=== PATIENT | male | born 1930 | race Caucasian/White ===

== ENCOUNTER 2017-08-31 15:52 | Inpatient (IN) | payer OTHER ==
[~2017-08-31] VITALS: Ht 185.4 cm; Wt 120.2 kg
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
[2017-08-31] MEDS ORDERED: NITROGLYCERIN0.4 MG SL (20:15)
[2017-08-31] MEDS ORDERED: SPIRONOLACTONE25 MG PO (20:16)
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
--- NOTE | 2017-08-31 21:15 | NUR ---
OFFERED AND ACCEPTED JELLO AND APPLEJUICE. OFFERED PAIN MEDICATION, BUT STATED HE WANTED TO WAIT. CALLLIGHT WITHIN REACH.
--- NOTE | 2017-08-31 22:30 | NUR ---
MED FOR PAIN, PO PRN PAIN MED, SAYS PAIN 5/10, ENCOURAGED TO DEEP BREATH EVERY TIME THIS NURSE IN ROOM. SAYS HURTS HIS CHEST BUT UNDERSTANDS THAT HE NEEDS TO DO THIS. DRESSING CHANGED TO LEFT HAND. STERI STRIPS STILL ATTACHED TO MOST OF THE SKIN TEAR, BUT THE THUMB SIDE OF HAND HAS MISSING TISSUE AND IS SEEPING BLOOD. NONSTICK DRESSING, COVERED WITH ABD AND WRAPPED WITH KERLIX. LEFT FORARM PURPURA EXTENDS FROM WRIST TO MIDARM. ARM/HAND ELEVATED ON PILLOW. CALL LIGHT WITHIN REACH. SON WENT HOME EARLIER AND TOOK PT WALLET WITH HIM. LEFT PT CELL PHONE.
--- NOTE | 2017-08-31 22:52 | EKG ---
[facility] [address] [facility] [place] [address] Signed Atrial fibrillation with premature ventricular or aberrantly conducted complexes Left axis deviation Right bundle branch block T wave abnormality, consider lateral ischemia Abnormal ECG No previous ECGs available Confirmed by DEYVI KENDRICK MD ([id number]) on 08/31/2017 10:52:44 PM Electronically Signed By: DEYVI KENDRICK MD 08/31/17 2252 PATIENT NAME: KARISHMA SORENSEN Electrocardiogram DATE OF : 34 PHYSICIAN: DEYVI KENDRICK MD REPORT #: [id number] REPORT IS CONFIDENTIAL AND NOT TO BE RELEASED WITHOUT AUTHORIZATION
--- NOTE | 2017-09-01 01:06 | NUR ---
PT WITH EYES CLOSED, RESP EVEN AND UNLABORED.
--- NOTE | 2017-09-01 02:14 | NUR ---
WOKE PT FOR VITAL SIGNS. FIRST THOUGHT HE WAS HOME, BUT THEN ORIENTATED TO SURROUNDINGS. LT HAND WITH BLOOD ON DRESSING. ADDED KERLIX TO COVER, HAND ELEVATED. FINGERS WARM ROSS WELL, HAD PT MOVE FINGERS AROUND. HAD PT MOVE HIS FEET AROUND, AND MOVE TOES. APICAL PULSE D/T IRREGULAR DONE. I/S USED, IMPROVEMENT, ABLE TO INHALE TO 2500, SLOW AND NO INCREASE IN PAIN, COMPARED TO ADMISSION, WHEN HE HAD COMPLAINTS OF DISCOMFORT WHEN TAKING A DEEP BREATH. IV CONTINUES TO INFUSE PER ORDER. PT DENIED NEED FOR PAIN MED, CALL LIGHT WITHIN REACH.
[2017-09-01] MEDS ORDERED: VENTOLIN HFA18 GM (02:58)
[2017-09-01] MEDS ORDERED: ALLOPURINOL300 MG PO ×2 (02:58→02:59)
[2017-09-01] MEDS ORDERED: LISINOPRIL2.5 MG PO (03:00)
[2017-09-01] MEDS ORDERED: COUMADIN4 MG PO (03:01)
--- NOTE | 2017-09-01 04:16 | NUR ---
CHECKED IN ON PT, HE WOKE, REQUESTED TO GET UP TO BATHROOM. WITH MOD ASSIST OF 2, ASSISTED TO STANDING, HE TRIED TO DO MORE THIS TIME, WITH PAIN, COMPLAINS OF PAIN MORE IN THE LEFT SIDE VS CHEST DISCOMFORT. NOT NO NEW BRUISING OR SWELLING OVER THIS SHIFT. LT HAND WITH SCANT NEW REDNESS PEAKING THROUGH THE LAYER OF KERLIX, THUMB SIDE, BUT NO WET BLEEDING NOTED ON HANDS/FINGERS. FINGERS MOVE ON COMMANDE, WARM. VOIDED 225; OFFERED PAIN MED, ACCEPTED ONE TABLET PO MED, WELL DRANK 300 APPLEJUICE. PULSE IRREGULAR, APICAL 60 PULSE, SATS IN THE 90'S ON ROOM AIR. ONCE IN BED, LT HAND ELEVATED ON PILLOW, CALL LIGHT WITHIN REACH. BP 135/65; USED I/S ONCE BACK IN BED, ABLE TO GET TO 2500 WITH MORE EFFORT THAN LAST TIME, NO COUGHING OR COMPLAINTS WHEN HE TAKES A DEEP BREATH. SKIN WARM AND DRY. DRESSINGS ON LEGS WITH NO NEW DRAINAGE FROM BEGINING OF SHIFT.
--- NOTE | 2017-09-01 06:08 | NUR ---
RT IN ROOM GIVING BREATHING TX. ASSESSED PT PAIN NEEDS, STATES THAT THE PILL 'KICKED' IN. DENIES NAUSEA, DIZZINESS OR SOB. LT HAND WITH BLOODY DRAINAGE THROUGH THE KERLIX. TOOK DRESSING DOWN TO THE NONSTICK, NOTED THAT BLOOD GELLED AROUND TOP, DIDN'T WANT TO DISTURB IF WOUND HAD CLOTTED. GAUZE AND ABD WITH PRESSURE KERLIX WRAPPED. HAND/ARM ELEVATED ON PILLOW. STATES MAJORITY PAIN IS IN THE LEFT RIB AREA, WHILE ABLE TO RAISE HIS LEFT ARM, HE STATES IT IS PAINFUL. CALL LIGHT WITHIN REACH.
--- NOTE | 2017-09-01 06:30 | NUR ---
NOTIFIED DR. MOISE OF PT LFT HAND AND THE DRESSING CHANGES THAT OCCURRED. INFORMED HIM OF PT NIGHT AND PAIN ISSUES.
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
--- NOTE | 2017-09-01 08:30 | NUR ---
Patient is refusing to get up in the chair at this time, patient states that he is too sore to get up. Patient also refused a clear liquid tray, but was given some beef broth.
--- NOTE | 2017-09-01 09:44 | NUR ---
patient sitting up in bed. patient holding side. pain reported on r side. l arm dressing intact with no drainage. patient reports difficulty swallowing liquids. updated dr. lemons. updated plan for patient to attempt a regular diet to see if there was any improvment with swallow.
--- NOTE | 2017-09-01 10:07 | NUR ---
Patient sitting up in bed eating breakfast at this time. Patient would like to wait to get up in the chair until after his breakfast is done.
--- NOTE | 2017-09-01 10:35 | NUR ---
son in room. patient sitting in bed with hob elevated. patietn c/o of r side pain and that when drinking thin liquids it " gets stuckin throat". dr. lemons is aware. patient tolerating apple sauce, yogurt, and cream of wheat. motrin given for pain. plan to sit in chair in 30 minutes.
--- NOTE | 2017-09-01 13:34 | NUR ---
PATIENT SITTING IN CHAIR. ORDERED EGG SALAD SANDWICH. TOLERATING AT THIS TIME. PLAN TO AMBULATE IN ROOM ONCE DONE WITH FOOD.
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
--- NOTE | 2017-09-01 16:26 | NUR ---
patient stood at bedside to void. patient tolerated with 2 assist. increased pain with movement, but once to standing position patient does well. plan to bring in motrin with dinner.
--- NOTE | 2017-09-01 17:34 | NUR ---
patient ambulated in [place]. tolerating well once up. patient has a hard time getting out of bed or up from chair. increase of pain with this activity. patient continues to refuse narcotics. we have been getting good pain control with motrin and tylenol. patient can be forgetful at times, but tolerating treatment well. is encouraged. patient getting 1700 with is therapy. Tolerating regular diet well. new dressing to l hand. small amount of shadowing present to patients lower leg bandages. patient has very delicate skin.
--- NOTE | 2017-09-01 18:17 | NUR ---
PATIENT HAVING SHADOWING IN L HAND. REDRESSED WITH GAUZE AND COBAND. PATIENT TOLERATED WELL. MOTRIN GIVEN FOR PAIN. IS ENCOURAGED.
--- NOTE | 2017-09-01 19:10 | NUR ---
REPORT RECVD FROM TOMMY SHEEHAN, PT AWAKE IN ROOM. FAMILY AND FRIENDS AT BEDSIDE. PT STATES HIS PAIN IS "OKAY" WHEN HE IS NOT MOVING. NO FURTHER NEEDS AT THIS TIME. CALL LIGHT IN REACH.
--- NOTE | 2017-09-01 20:19 | NUR ---
IN TO SEE PT, PT ASSISTED UP TO BATHROOM WITH 1 PERSON ASSIST WITH FWW. TOLERATED OKAY. PAIN INCREASED WHEN GETTING OOB AND OFF THE TOLIET. PT ASSISTED BACK TO BED. ASSESSMENT COMPLETE. PT APPEARS TO BE IN PAIN, FACIAL GRIMACE NOTED. DISCUSSED THE USE OF NARCOTICS FOR PAIN, PT AGREES. PERCOCET 1 TABLET GIVEN. PT C/O COUGHING AND INCREASE SPUTUM. WILL MONITOR. RT IN ROOM. WILL CONTINUE TO MONITOR PT.
--- NOTE | 2017-09-01 20:35 | NUR ---
Nurse in room getting patient up to bathroom. Whiteboard updated. Room tidied.
--- NOTE | 2017-09-01 21:05 | NUR ---
IN TO CHECK ON PT, PT STILL VISABLY HAVING PAIN. PT RATES PAIN 8/10. DISCUSSED OPTIONS FOR PAIN MEDICATION, PT AGREES TO SECOND DOSE OF PERCOCET. PERCOCET GIVEN. WARM PACK PLACED ON L SIDE OF RIBS FOR PAIN. PT C/O CONTINUED COUGHING. WILL MONITOR PT. CALL LIGHT IN REACH.
--- NOTE | 2017-09-01 23:08 | NUR ---
IN TO CHECK ON PT. PT STATES "I AM DOING BETTER NOW, MY PAIN IS BETTER." DISCUSSED NEXT DOSE OF MOTRIN @ 0100. PT STATES " I AM GOING TO TRY TO GET SOME REST." NO FURTHER NEEDS AT THIS TIME. CALL LIGHT IN REACH.
--- NOTE | 2017-09-02 00:17 | NUR ---
PATIENT IN BED SLEEPING
--- NOTE | 2017-09-02 01:17 | NUR ---
PT CALLED, IN TO CHECK ON PT. PT STANDING AT BEDSIDE WHEN RN ENTERED ROOM. ASSISTED PT TO BATHROOM, ASSISTED BACK TO BED. PT TOLERATED WELL. PT RATES PAIN 3/10, PRN MOTRIN GIVEN. VITALS COMPLETE. BED ALARM ON FOR PT SAFETY. CALL LIGHT IN REACH.
--- NOTE | 2017-09-02 03:33 | NUR ---
PATIENT IN BED. NURSE IN ROOM.
--- NOTE | 2017-09-02 03:34 | NUR ---
IN TO CHECK ON PT, PT AWAKENS TO NOISE. WHEN ASKED ABOUT PAIN PT STATES " I AM NOT HAVING ANY RIGHT NOW." PT STATES HE IS GOING TO TRY TO GET SOME MORE SLEEP. NO FURTHER NEEDS AT THIS TIME. DSG TO L ARM C/D/I. IVF INFUSING. CALL LIGHT IN REACH.
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
--- NOTE | 2017-09-02 05:00 | NUR ---
PT CALLED, ASSISTED UP TO BATHROOM WITH ASSIST FROM V BELT COVERER AND RN. PT TOLERATED WELL. PT ASSISTED BACK TO BED. PT STATES "MY PAIN IS UP THERE." OFFERED PRN TYLENOL FOR PAIN. PT REQUEST TO TRY PERCOCET FOR PAIN. PT RATES PAIN 4/10 ONCE BACK IN BED AND LAYING DOWN, PERCOCET GIVEN. PT LYING IN BED, WATCHING TV. APICAL PULSE NOTED TO BE IRREGULAR, RATE 62. LUNG SOUNDS CLEAR, DENIES SOB. NO FURTHER NEEDS AT THIS TIME. BED ALARM ON AND CALL LIGHT IN REACH.
--- NOTE | 2017-09-02 06:43 | NUR ---
IN TO CHECK ON PT, PT UP TO BATHROOM WITH ASSIST FROM BOAT WRAPPER. PT REPOSITIONED IN BED FOR COMFORT. IV SITE LEAKING, IVF STOPPED. TAPE REMOVED, IV LOOSE AT THE HUB. SITE HAS GOOD BLOOD RETURN AND FLUSHES WELL. OPSITE APPLIED. COFFEE GIVEN. NO FURTHER NEEDS AT THIS TIME. CALL LIGHT IN REACH.
--- NOTE | 2017-09-02 08:43 | NUR ---
pt up to chair. 2 person asssist with fww. pt complained of pain mostly on left side. once pt was up able to move with minimal assistance to chair.
--- NOTE | 2017-09-02 08:49 | NUR ---
PT AWAKE IN BED. FRESH ICE WATER. ORDERED BREAKFAST. PICKED UP ROOM.
--- NOTE | 2017-09-02 08:53 | NUR ---
GAVE PT 1 TAB PERCOCET 7.5/325 PO FOR PAIN 01/08.
--- NOTE | 2017-09-02 09:57 | NUR ---
PT AWAKE IN CHAIR. GAVE WET WASH CLOTH FOR FACE. AM CARE. FRESH COFFEE
--- NOTE | 2017-09-02 10:28 | NUR ---
pt up to bathroom with fww. 2 person assist. pt back to chair. complains of pain with movement better while at rest.
--- NOTE | 2017-09-02 12:06 | NUR ---
PT RESTING IN CHAIR EATING LUNCH. SON AT BEDSIDE. CALL LIGHT WITHIN REACH.
--- NOTE | 2017-09-02 12:42 | NUR ---
pt to bed from chair. 1-2 person assist. complained of pain 02/08. gave 1 tab percocet 7.5/325 po.
--- NOTE | 2017-09-02 14:02 | NUR ---
PT WAS IN WITH RT. GOT HIS FRESH WATER. PARKER LIGHT IN REACH
--- NOTE | 2017-09-02 15:23 | NUR ---
PT AWAKE IN BED. STOCKED ROOM. EMPTYED GARBAGE. PICKED UP ROOM
--- NOTE | 2017-09-02 15:27 | NUR ---
TOOK OVER CARE OF THIS PATIENT AT THIS TIME FOR THERESA REPORT RECIEVED FROM HER.
--- NOTE | 2017-09-02 15:47 | NUR ---
DOCTOR JOSE MARIA IN TO SEE THE PATIENT
--- NOTE | 2017-09-02 17:19 | NUR ---
patient painful with movement up in bed, patient given 1 percocet po at this time.
--- NOTE | 2017-09-02 18:28 | NUR ---
TOOK OVER CARE OF THIS PATIENT THIS AFTERNOON, PATIENT HAS BEEN LESS PAINFUL AFTER DECIDING TO START TAKING PERCOCET 1 TABLET LAST EVENING. A RESULT HE MOVES EASIER AND CAN GET UP OOB AND STAND WITH LESS PAIN. HE IS NOW A 1 PERSON STANDBY ASSIST WHEN HE GETS UP AND NEEDS MINIMAL ASSISTANCE. HIS PLAN IS TO D/C HOME WITH HIS SON IN THE AM.
--- NOTE | 2017-09-02 18:37 | NUR ---
PT IN BED. ASKED FOR PAIN PILL NOTIFYED NURSE.
--- NOTE | 2017-09-02 18:45 | NUR ---
Pt. eating dinner with friends at bedside. Pt. stated he wants to shower right before he goes home. call light in reach.
--- NOTE | 2017-09-02 18:53 | NUR ---
PT AMBULATED TO BEDSIDE COMMODE WITH TWO PERSON STANDBY ASSIST AND SUPPORT WHEN STANDING. PT HAD ASSISTANCE CLEANING SELF. RETURNED TO BED IN UPRIGHT SUPINE POSITION WITH SCD'S ON. PT C/O 5/10 PAIN IN RIGHT ARM AND TOOK 650 MG TYLENOL PO IN RESPONSE. ARM IS ELEVATED IN SLING AND BY PILLOW.
--- NOTE | 2017-09-02 20:40 | NUR ---
PATIENT ASSESSMENT COMPLETED. EVEING MEDS GIVEN. PATIENT UP TO THE BATHROOM. 2PA W/FWW. PATIENT REPORTS FEELING VERY STIFF AND SORE, HAS DIFFICULTY GETTING UP OUT OF THE BED AND DOES NOT APPEAR VERY STEADY ON HIS FEET. PATIENT BACK TO BED, REQUIRED TWO STAFF MEMBERS TO ADJUST HIS POSITION IN BED. LEFT SIDE IS PAINFULL ALL OVER, EXPECIALLY HIS LEFT RIBS WITH MOVEMENT. DRESSINGS ON HIS KNEES AND LEFT WRIST ARE C/D/I. NEW BANDAID APPLIED TO LEFT FOREARM BECAUSE IT CAME OFF WITH MOVEMENT. PRN PAIN MEDS GIVEN PER ORDER. IVF INFUSING, SITE WNL. LUNG SOUNDS ARE CLEAR. ABD IS SOFT, TENDER ON LEFT SIDE, BOWEL SOUNDS ACTIVE. DISCOLORATION ON LOWER EXTREMITIES NOTED. PATIENT IS AAOX3, HOWEVER HE REPORTS BEING FORGETFUL. NERUO CHECK IS WNL. PATIENT DENIES FURTHER NEEDS. CALL LIGHT IS WITHIN REACH. BED ALARM ON.
--- NOTE | 2017-09-02 21:15 | NUR ---
ROUNDED ON PATIENT CHARGE. ALL QUESTIONS ANSWERED. NO CONCERNS OR COMPLAINTS AT THIS TIME. CALL LIGHT IN REACH.
--- NOTE | 2017-09-02 22:50 | NUR ---
PATIENT RESTING IN BED. EYES CLOSED. RR 18. CALL LIGHT IN REACH. BED ALARM ON.
--- NOTE | 2017-09-03 01:30 | NUR ---
PATIENT WAS UP TO THE BEDSIDE ATTEMPTING TO GET OUT OF BED WITHOUT USING HIS CALL LIGHT. IV HAD TENSION ON IT, UPON INSPECTION IT WAS LEAKING AT THE INCERTION SITE. NEW IV PLACED IN RIGHT FOREARM. PATIENT TOLERATED WELL. IVF INFUSING. PATIENT ASSISTED TO THE BATHROOM, 1PA W/FWW. PATIENT IS VERY FORGETFUL, HE ANSWERS QUESTIONS APPROPRIATELY BUT TAKES A SIGNIFICANT AMOUNT OF TIME TO REMEMBER DETAILS. PATIENT ASKED STAFF "DO YOU KNOW WHAT GOD IS DOING?" AND WHEN RN ASKED FOR HIM TO CLARIFY HIS QUESTIONS, HE REPLIED "SHAWNA, WHAT IS SHAWNA UP TO?". THE PATIENT IS ALSO EXPERIENCING DIFFICULTING GETTING HIMSELF BACK INTO BED. THE PAIN WITH MOVEMENT REDUCES HIS ABILITY TO MOVE HIS LEGS UP INTO THE BED AND WHEN THE RN MOVES HIS LEGS FOR HIM THE PAIN IS SEVERE. PRN PAIN MEDS GIVEN PER ORDER. PATIENT IS RESTING IN BED. DEMONSTRATES ABILITY TO USE THE CALL LIGHT AND AGREES TO CALL FOR HELP IF NEEDED. BED ALARM ON.
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
--- NOTE | 2017-09-03 05:18 | NUR ---
PATIENT HAS RESTED ON AND OFF THROUGHOUT THE SHIFT. SOME DIFFICULTY WITH PAIN CONTROL. PATIENT NEEDED TO BE REORIENTED 2-3 TIMES. DRESSING ARE C/D/I. NEW IV IN R FOREARM, IVF INFUSING. PATIENT IS 1-2PA W/FWW.
--- NOTE | 2017-09-03 06:20 | NUR ---
MD CONTACTED TO REPORT INCREASED CONFUSION AND POOR PAIN CONTROL. NO ANSWER. LEFT MESSAGE.
--- NOTE | 2017-09-03 06:39 | NUR ---
PATIENT REFUSED MORNING NEB TREATMENT. PATIENT HAS BEEN COUGHING AND CLAIMS TO HAVE COUGHED UP SOME SPUTUM. RN WITNESSED PATIENT ATTEMPTING TO NOT COUGH AND BREATHING SHALLOW DUE TO PAIN IN HIS RIBS. EDUCATED PATIENT ON IMPORTANCE OF PULMONARY HYGIENE. PATIENT DEMONSTRATED USE OF IS X1, REFUSED TO PERFORM IT MORE THAN THAT DUE TO PAIN. PATIENT DOES NOT WANT PRN PAIN MEDS DUE TO INCREASED CONFUSION. PATIENT IS AGAIN AAOX3. WILL DISCUSS CONCERNS WITH MD WHEN HE RETURNS CALL OR WILL PASS ALONG TO DAY RN.
--- NOTE | 2017-09-03 07:11 | NUR ---
RECIEVED BEDSIDE REPORT FROM NURYRN AND SISSY CARCAMO. STUDENT NURSE SMITH ALSO PRESENT. PT AWAKE AND ALERT IN BED. PT REPOSITIONED IN BED PER REQUEST. DISCUSSED PLAN OF CARE WITH SMITH STUDENT NURSE.
--- NOTE | 2017-09-03 07:25 | NUR ---
LEFT MESSAGE WITH SERGERY DEPARTMENT FOR MD TO CONTACT [facility] ABOUT CONCERNS.
--- NOTE | 2017-09-03 08:14 | NUR ---
MD CALLED RE: PHONE MESSAGE FROM NOC RN. PT BECOMES VERY CONFUSED AND DISOREIENTED AFTER PERCOCET DOSES. MD DISCONTINUED PERCOCET. PT ALERT AND AWAKE AT THIS TIME. RACKMAN AND STUDENT NURSE GETTING HIM UP FOR A SHOWER. PT STATES PAIN AT REST IS "2 AT MOST, BUT GETS UP THERE WITH MOVEMENT". PRN TYLENOL GIVEN FOR PAIN.
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
--- NOTE | 2017-09-03 09:27 | NUR ---
RN student and ASSET PROTECTION MANAGER assissted pt. up to bathroom and shower give. Dressing on leg wounds changed. Bed linens changed by ASSET PROTECTION MANAGER. Pt. moved to chair after shower and encouraged to use IS. Fresh coffee given. Call light in reach.
--- NOTE | 2017-09-03 09:59 | NUR ---
Assissted pt. from bathroom to chair. vital signs taken. call light in reach.
[2017-09-03] MEDS ORDERED: MAPAP325 MG PO (11:07)
[2017-09-03] MEDS ORDERED: IBUPROFEN600 MG PO (11:07)
[2017-09-03] MEDS ORDERED: COUMADIN4 MG PO (11:09)
--- NOTE | 2017-09-03 12:58 | NUR ---
RN gave verbal discharge instructions to pt and his son. All questions answered. IV removed. RN and MARINE PROPULSION TECHNICIAN assisted pt with getting dressed. MARINE PROPULSION TECHNICIAN assisted pt outside.
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
== END 2017-09-03 12:57 | disposition home or self-care (01) | DRG 605 ==
LOC: ED 15:52 → MS 19:55
PROVIDERS: ADMIT Surgery
DX: S20.219A Contusion of unspecified front wall of thorax, initial encounter (principal); V43.52XA Car driver injured in collision with other type car in traffic accident, initial encounter; Y92.410 Unspecified street and highway as the place of occurrence of the external cause; I48.91 Unspecified atrial fibrillation; Z79.01 Long term (current) use of anticoagulants
CPT/HCPCS: 36415; 70450; 71010; 71260; 72125; 73130; 74177; 80053; 81001; 82550; 83690; 85025; 85610; 86850; 86900; 86901; 90471; 90715; 93005; 93010; 94640; 99285; G0480; J7120; Q9967

== ENCOUNTER 2020-05-21 22:27 | Observation (INO) | payer MEDICARE ==
[~2020-05-21] VITALS: Ht 185.4 cm; Wt 100.1 kg
[~2020-05-21 22:27] MED LIST: ALLOPURINOL300 MG PO; COUMADIN4 MG PO; IBUPROFEN600 MG PO; LISINOPRIL2.5 MG PO; MAPAP325 MG PO; NITROGLYCERIN0.4 MG SL; SPIRONOLACTONE25 MG PO; VENTOLIN HFA18 GM
[2020-05-21] MEDS ORDERED: ELIQUIS5 MG PO (22:50)
--- NOTE | 2020-05-22 03:45 | NUR ---
PT TO ROOM 111 FROM ED VIA STRETCHER. ALERT AND ORIENTED. TRANSFERRED WITH DRAW SHEET AND STAFF ASSIT. ORDERS RECEIVED. IVF INFUSING. PRN ADMINISTERED FOR NECK PAIN. ASSESSMENT COMPLETE. ORIENTATION TO ROOM AND NURSE CALL LIGHT PROVIDED. PT DENIES QUESTIONS OR CONCERNS AT THIS TIME. WARM BLANKET GIVEN. CALL LIGHT IN REACH.
--- NOTE | 2020-05-22 05:45 | NUR ---
CALL LIGHT ANSWERED. PT UP TO BSC WITH FWW AND 2PA TO VOID AND HAVE BM. FRESH ATTENDS PLACED. ASSISTED WITH RADHA CARE. BACK TO BED, ELLI WELL. PT DENIES CP OR SOB. TELE #5. HR 50'S. NO FURTHER NEEDS. CALL LIGHT IN REACH.
--- NOTE | 2020-05-22 07:11 | NUR ---
REPORT RECEIVED FROM FAUSTO SHEEHAN.
--- NOTE | 2020-05-22 07:39 | NUR ---
MORNING ASSESSMENT DONE. PATIENT IS RESTING IN BED, USED URINAL WITH ASSISTANCE. PATIENT REPORTS 5/10 PAIN TO NECK AND RIGHT SIMMS. IV SITE DOCUMENTED IN INCORRECT SPOT, CORRECTED TO CURRENT LEFT FOREARM SITE. PATIENT HAS PRODUCTIVE COUGH, DENIES HAVING COUGH BEFORE THIS ADMISSION, EX WHEEZE NOTED TO LEFT UPPER LUNG FIELD. PATIENT DENIES NAUSEA, CALL LIGHT IN HAND.
--- NOTE | 2020-05-22 09:04 | NUR ---
PATIENT IS STAYING IN TOWN WITH SON GIAN. [place]. HAS PCP IN [facility]. COULDN'T REMEMBER HIS HOME PHARMACY BUT STATES HIS SON CAN USE ANY PLACE HERE. HE DENIES USING ANYTHING OTHER THAN A CANE FOR AMBULATION NORMALLY. HE HAS HIS LISCENSE BUT STATES HIS SON DRIVES HIM AROUND HERE. HE LIVES ALONE. PATIENT IS VAGUE ABOUT LIVING SITUATION. HE INTENDS TO RETURN TO SONS HOME WHEN DISCHARGED. PATIENT STATES HE NEEDS TO VOID AND ASKS FOR HELP. STAFF NURSES NOTIFIED. DENIES FINANCIAL WORRIES FOR MEDICATIONS, FOOD OR UTILITIES. CALLED SON LUDIN BY PHONE [phone]. HE CONFIRMS ABOVE. 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 BUT THAT OVER THE LAST YEAR HE HAS BEEN COMING TO [place] AND STAYING MORE AND MORE. HE DOESN'T STAY DOWN IN THE OTHER PLACE BUT FOR A FEW DAYS AT A TIME HERE AND THERE. HE CONFIRMS HE DAD DOES HAVE A CAR THERE AND DRIVES ONLY OCCASIONALLY TO LOCAL AREA. MOSTLY HE RIDES WITH HIM. THEY USE [employer] IN [place] FOR HIS MEDICATIONS. QUESTIONS ANSWERED REGARDING COVID TESTING. 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 EXPLAINED TESTING TAKES A DAY OR TWO TO GET BACK. HE INTENDS PATIENT TO RETURN HOME WITH HIM AT DISCHARGE.
--- NOTE | 2020-05-22 09:30 | NUR ---
PATIENT STOOD WITH TWO PERSON ASSIST TO BSC. PATIENT USED FWW.
--- NOTE | 2020-05-22 10:06 | NUR ---
DR. JERONIMO IN TO SEE PATIENT, SON IN ROOM WITH PATIENT. IVF INFUSING, ROCEPHIN STARTED. TELE D/C'D. PATIENT IS WEAK WITH TRANSFER TO COMMODE, 2 PERSON STANDBY, ABLE TO TOLERATED SITTING ON COMMODE WITH NO DIZZINESS. RIGHT SIMMS DRESSING CHANGED, SKIN TEAR VISIBLE BUT CDI AND WELL APPROXIMATED. ADAPTIC, NON-ADHERENT DRESSING AND GUAZE COVERED.
--- NOTE | 2020-05-22 11:18 | NUR ---
2PA TO STAND AT SIDE OF BED AND USE THE URINAL. SON IN ROOM. PT LATA IN TP EVALUATE, WILL AMBULATE WITH LATA IN [place]
--- NOTE | 2020-05-22 11:22 | NUR ---
PATIENT UP AMBULATING IN HALLWAY WITH PHYSICAL THERAPY.
[2020-05-22] MEDS ORDERED: PAIN RELIEF325 MG PO (12:17)
[2020-05-22] MEDS ORDERED: VENTOLIN HFA18 GM INH (12:18)
[2020-05-22] MEDS ORDERED: MICONAZOLE TOP (12:19)
--- NOTE | 2020-05-22 12:19 | NUR ---
PATIENT IS RESTING IN BED, LUNCH ORDERED FOR PATIENT.
[2020-05-22] MEDS ORDERED: TERBINAFINE15 G1 TOP (12:20)
--- NOTE | 2020-05-22 13:36 | NUR ---
2 PA WITH RN ARIEL, STAND AT BEDSIDE TO USE URINAL. VITALS AND I&OS CHARTED. CALL LIGHT IN REACH
--- NOTE | 2020-05-22 13:57 | NUR ---
PATIENT ABLE TO STAND AT BEDSIDE WITH MINIMAL ASSIST. TWO STAFF IN ROOM FOR SAFTEY. PATIENT FOLLOW DIRECTIONS WELL, ABLE TO USE WALKER EFFECTIVELY. PATIENT DENIES WANTING TO BE UP TO CHAIR, INSISTED ON GOING BACK TO BED.
--- NOTE | 2020-05-22 15:51 | NUR ---
PATIENT UP TO VOID WITH 2 PERSON ASSIST.
--- NOTE | 2020-05-22 16:47 | NUR ---
PATIENT WORKED WITH PHYSICAL THERAPY, AMBULATED DOWN HALLWAY WITH ONE PERSON ASSIST, IS SITTING UP IN CHAIR FOR DINNER. IVF RESUMED.
--- NOTE | 2020-05-22 17:42 | NUR ---
PATIENT UP IN CHAIR, FINISHED WITH DINNER. VITALS AND I&OS CHARTED. CALL LIGHT IN REACH.CUP OF COFFE BROUGHT IN FOR PATIENT, NO OTHER NEEDS AT THIS TIME
--- NOTE | 2020-05-22 19:08 | EKG ---
[facility] [address] [facility] [place] [address] Signed Ventricular-paced rhythm Abnormal ECG When compared with ECG of 31-AUG-2017 17:51, Electronic ventricular pacemaker has replaced Atrial fibrillation Confirmed by CAMILA JERONIMO MD ([id number]) on 05/22/2020 7:08:04 PM Electronically Signed By: CAMILA JERONIMO MD 05/22/20 1908 PATIENT NAME: KARISHMA SORENSEN Electrocardiogram DATE OF : 34 PHYSICIAN: CAMILA JERONIMO MD REPORT #: [id number] REPORT IS CONFIDENTIAL AND NOT TO BE RELEASED WITHOUT AUTHORIZATION
--- NOTE | 2020-05-22 20:02 | NUR ---
CALL LIGHT ANSWERED, 2PA TO RESTROOM FOR VOID. DRIBBLING OF URINE ON FLOOR, ATTENDS CHANGED, 250 ML VOID IN URINAL. IVF INFUSING WNL ORDERED. CALL LIGHT IN REACH. NO ADDITIONAL REQUESTS AT THIS TIME.
--- NOTE | 2020-05-22 20:30 | NUR ---
PATIENT AMBULATED TO BATHROOM TO VOID AND BACK TO BED. PATIENT CALL LIGHT IN REACH. NO FURTHER NEEDS AT THIS TIME.
--- NOTE | 2020-05-22 21:00 | NUR ---
Back to bed, tolerated well, hob elevated, compliant and coop with assessment, [place], on Room air, lungs clear bilat, pacer in place. call light and fluids at bedside, watching tv, denies c/o pain
--- NOTE | 2020-05-22 22:45 | NUR ---
PATIENT CALLED FOR ASSISTANCE, IS [facility] OUT OF BED UPON ENTRY TO ROOM. PATIENT STATES HE WOKE UP AND STARTED TO GET OUT OF BED FORGETTING HE WAS IN THE HOSPITAL, AND THEN REALIZED WHERE HE WAS AND CALLED FOR HELP. PATIENT STOOD AT EDGE OF BED TO VOID IN URINAL AND THEN BACK IN BED, CALL LIGHT IN REACH, BED ALARM ON. NO FURTHER NEEDS AT THIS TIME.
--- NOTE | 2020-05-22 23:20 | NUR ---
RESATING, EYES CLOSED, NO C/O APIN, IVF INFUSING, BED ALARM ON. CALL LIGHT AT BEDSIDE
--- NOTE | 2020-05-23 00:17 | NUR ---
PATIENT CALLS FOR ASSISTANCE TO USE URINAL. PATIENT HAD SMALL URINARY INCONTINENCE, BREIFS CHANGED, PERICARE PERFORMED. PATIENT BACK IN BED AND REPOSITIONED. PATIENT COMPLAINS OF COBAND ON IV SITE BEING TOO TIGHT, RN NOTIFIED. CALL LIGHT IN REACH, BED ALARM ON, NO FURTHER NEEDS AT THIS TIME.
--- NOTE | 2020-05-23 02:30 | NUR ---
eyes closed, no resp distress, on room air, calm, bed alarm on, ivf infusing w/o problems. call light and fluids at bedside,
--- NOTE | 2020-05-23 04:18 | NUR ---
up to edge of bed, urinated, using urinal, back to bed, coop, on room air, 1pa/fww. Call light and fluids at bedside
--- NOTE | 2020-05-23 05:56 | NUR ---
pt has slept off and on, uses call call light appropriately, uses urinal, voiding qs. robbie wright to [place] area. On room air, has had no syncope episodes, was in chair at begining of shift, tolerated well. 1PA/fww. tolerating fluids and diet well, call light and fluids at bedside. hob elevated to comfort
--- NOTE | 2020-05-23 06:04 | NUR ---
PATIENT RESTING IN BED, CALL LIGHT IN REACH. BED ALARM ON. NO FURTHER NEEDS AT THIS TIME.
--- NOTE | 2020-05-23 09:09 | NUR ---
PT SHOWER AND THEN UP TO THE CHAIR. NO C/O'S AT THIS TIME
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
--- NOTE | 2020-05-23 09:58 | NUR ---
PT SHAVED SELF THIS AM REMAINS UP IN THE CHAIR, AND SON IS AT THE BEDSIDE AT THIS TIME. IV WILL BE SALINE LOCKED.
--- NOTE | 2020-05-23 10:44 | NUR ---
DRESSING CHANGED AT THIS TIME ON HIS RIGHT LOWER LEG. ALSO PT IS BEING DISCHARGE TO HOME AND ITEMS TO COMPLETE DRESSING CHANGED GIVEN TO PT'S SON.
--- NOTE | 2020-05-23 11:42 | NUR ---
PT DISCHARGED TO HOME WITH HIS SON, ALL QUESTIONS ANSWERED AND DRESSING SUPPLIES FOR 4 DRESSING CHANGED PROVIED AND SON UNDERSTAND HOW TO COMPLETE THEM.
--- NOTE | 2020-05-23 13:32 | PATH ---
[facility] [address] [facility] [place], [place] [address] Signed ORDERING PHYSICIAN: Edil COLMENARES, Jame Chaidez PATIENT NAME: KARISHMA SORENSEN GENDER: Elis : 1930 SPECIMEN(S): No Source Given MOLECULAR PATHOLOGY RESULTS: SARS-CoV-2 Not Detected ADDITIONAL NOTES.: The Dulac Fusion SARS-CoV-2 Assay is a multiplex real-time PCR (RT-PCR) in vitro diagnostic test intended for the qualitative detection of RNA from SARS-CoV-2 from individuals who meet COVID-19 clinical and/or epidemiological criteria. In general, SARS-CoV-2 RNA can be detected during the acute phase of infection. Positive results indicate the presence of SARS-CoV-2 RNA. Clinical correlation with patient history and other diagnostic information is necessary to determine patient infection status. Positive results do not rule out bacterial infection or co-infection with other viruses. Negative results do not preclude SARS-CoV-2 infection and should not be used as the sole basis for patient management decisions. Negative results must be combined with other clinical observations, patient history, and epidemiological information. The Dulac Fusion SARS-CoV-2 Assay is not yet approved or cleared by the [place] FDA. When there are no FDA-approved or cleared tests available, and other criteria are met, FDA can make tests available under an emergency access mechanism called an Emergency Use Authorization (EUA). The EUA for this test is supported by the Sludge Filtration Operator of Health and Human Service's (HHS's) declaration that circumstances exist to justify the emergency use of in vitro diagnostics for the detection and/or diagnosis of the virus that causes COVID-19. This EUA will remain in effect for the duration of the COVID-19 declaration justifying emergency of IVDs, unless it is terminated or revoked by FDA, after which the test may no longer be used. The Dulac Fusion SARS-CoV-2 Assay is for use only under EUA in US laboratories certified under the Clinical Laboratory Improvement Amendments of 1988 (CLIA) to perform high complexity tests. [facility] is certified under CLIA to perform high complexity PATIENT NAME: KARISHMA SORENSEN PATHOLOGY DATE OF : 34 REPORT #: [id number] PHYSICIAN: DARSHANA RIVAS PCP: OTHER PCP REPORT IS CONFIDENTIAL AND NOT TO BE RELEASED WITHOUT AUTHORIZATION [facility] [address] [place] [address] Signed clinical laboratory testing. PERFORMING LABORATORY.: Molecular testing was performed by [facility] [place] [address] (Employee Relations Assistant: Surendra Zambrano D.O.; CLIA#: [id number]) Diagnostician: System Interface Pathologist Electronically Signed 05/23/2020 Copies: ~ PATIENT NAME: KARISHMA SORENSEN PATHOLOGY DATE OF : 34 REPORT #: [id number] PHYSICIAN: DARSHANA RIVAS PCP: OTHER PCP REPORT IS CONFIDENTIAL AND NOT TO BE RELEASED WITHOUT AUTHORIZATION
== END 2020-05-23 11:30 | disposition home or self-care (01) ==
LOC: ED 22:27 → MS 22:28
PROVIDERS: ADMIT Internal Medicine
DX: R55 Syncope and collapse (principal); S81.811A Laceration without foreign body, right lower leg, initial encounter; I48.20 Chronic atrial fibrillation, unspecified; I87.8 Other specified disorders of veins; Z88.2 Allergy status to sulfonamides; W18.30XA Fall on same level, unspecified, initial encounter
CPT/HCPCS: 36415; 70450; 72080; 72125; 73610; 80048; 80053; 81001; 83735; 84484; 85025; 87088; 93005; 93010; 96360; 96361; 96374; 96376; 97116; 97162; 99285-25; G0378; J0696; J7030; J7040

== ENCOUNTER 2021-05-17 07:42 | Inpatient (IN) | payer MEDICARE ==
[~2021-05-17] VITALS: Ht 185.4 cm; Wt 98.1 kg
[~2021-05-17 07:42] MED LIST changes: +ELIQUIS5 MG PO; +PAIN RELIEF325 MG PO; +RASH RELIEF ANT56 GM TOP; +TERBINAFINE15 G1 TOP; +VENTOLIN HFA18 GM INH
--- NOTE | 2021-05-17 10:10 | NUR ---
89 year old MALE PATIENT ADMITTED TO [facility] ED VIA STRETCHER UNDER DR. JERONIMO WITH DX OF LOWER GIB. UPON ADMIT, PATIENT IS AWAKE ALERT AND ORIENTED. IS SOMEWHAT FORGETFUL, SON IS HERE TO HELP ANSWERE ADMISSION QUESTIONS. PATIENT SON STATES HIS FATHER BEGAN HAVING DARK RED BLOODY STOOLS THIS MORNING, HAS HAS APPROX 3 EPISODES OF THIS, INCLUDING WHILE IN ER. HAS BEEN ON ELIQUIS IN CHRONIC AFIB, ALSO HAS A PACEMAKER. ADMISSION PROCESS STARTED. IVF LR 125 ML/HR HUNG.
--- NOTE | 2021-05-17 11:00 | NUR ---
PATIENT C/O VARIOUS PAIN, HAS SOME PAIN AT TOP OF LEFT FOOT. DISCOMFORT AT LAC IV SITE, PAIN IN TH PACK OF NECK. LAYING IN BED WITH GRIMACE ON FACE. PATIENT SON SAID THIS EXPRESSION IN NORMAL. PATIENT DENIES ABD PAINN OR NAUSEA. PATIENT HAS BEEN FELING THE URGE TO VOID AND BM HOWEVER HAS BEEN UNABLE TO DO SO SINCE ADMIT TO CCU. SON REMAINS IN ROOM.
--- NOTE | 2021-05-17 12:00 | NUR ---
OOB TO COMMODE WIHT ASSIST. WHILE GETTING OOB, INC OF DARK RED BLOOD CLOTS TO FLOOR. WAS ABLE TO VOID TO URINAL THEN TRANSFERRED TO COMMODE TO [facility] EXPELL DARK RED BLODO WITH CLOTS. PATIENT DENIES DIZZINESS WITH MOVEMENT. HR UP TO 100 WITH ACTIVITY. BACK TO BED W/O INCIDENT. SCD'S ON.
--- NOTE | 2021-05-17 12:30 | NUR ---
CONDOM CATH APPLIED BY STUDENT NURSE. PATIENT TOLERATED WELL.
--- NOTE | 2021-05-17 13:00 | NUR ---
ORAL CARE GIVEN. NS IRRIGATED TO BOTH EYES PATIENT HAS CRUSTY MATTER IN EYES, PATIENT SON SAID HIS FATHER DOES USE EYE GTTS FOR THIS CONDITION AT HOME.
--- NOTE | 2021-05-17 14:40 | NUR ---
UP TO COMMODE TO EXPELL VERY SMALL BLOODY STOOL. BACK TO BED W/O INCIDENT.
--- NOTE | 2021-05-17 15:00 | NUR ---
BOWEL PREP STARTED.
--- NOTE | 2021-05-17 16:05 | NUR ---
ASSISTING PATIENT TAKING BOWEL PREP.
[2021-05-17] MEDS ORDERED: PRESERVISION A1 EAC3 PO (16:37)
[2021-05-17] MEDS ORDERED: PREVAGEN PO (16:38)
--- NOTE | 2021-05-17 16:38 | NUR ---
MED REC COMPLETE
--- NOTE | 2021-05-17 17:45 | NUR ---
DR. JERONIMO UPDATED ON PATIENT CONDITION. REPEAT UA ORDERED AND TYLENOL FOR GENERAL PAIN.
--- NOTE | 2021-05-17 19:52 | NUR ---
PT ASSISTED UP FROM COMMODE AND BACK TO BED. PT TOLERATED WELL. APPROXIMATELY 400 ML OF RED LIQUID STOOL PRESENT IN COMMODE. PT ASKS FOR PERSONAL BELONGINGS TO BE PLACED IN CLOSET, DONE BY THIS WALLCOVERING TEXTURER. PT DENIES FURTHER NEEDS. CALL LIGHT PLACED IN PT'S LAP.
--- NOTE | 2021-05-17 20:40 | NUR ---
AWAKE WATCHING TV. NO C/O WHEN RESTING IN BED. CO GENERALIZED ACHES AND PAINS WHEN GETTING UP TO BSC AND MOVES VERY STIFFLY, ALSO HAS TREMORS. HAD 900 ML LIQ RED STOOL WITH FLECKS OFBROWN STOOL. REQIRES 1 PERSON ASSIST TO GET UP. C/O BEING COLD WHEN UP. COVERED WITH BLANKETS ON GETTING BACK TO BED.
--- NOTE | 2021-05-17 22:00 | NUR ---
DOZING OFF AND ON.
--- NOTE | 2021-05-17 23:29 | NUR ---
UP TO BSC TO VOID. URINE WAS CLEAR BUT DID HAVE CLOT FROM URETHRA AND DID HAVE BLOOD ON THIGHS. CLEANSED. PT VERY STIFF WITH MOVEMENT AND SKIN IS VERY SENSITIVE TO TOUCH IE WHEN RADHA CARE DONE. HAS MOTTLING AROUND KNEES. C/O BEING COLD. GIVEN WARM BLANKET. REQUIRED 2 PERSON ASSIST TO BSC. DID HAVE PT USE WALKER WHICH DID HELP. HAS DIFFICULTY WITH STANDING.
--- NOTE | 2021-05-18 00:09 | NUR ---
THOUGHT NEEDED TO HAVE BM, PT PLACED ON BEDPAN WITH DIFFICULTY DUE TO PT STIFFNESS. NO BM.
--- NOTE | 2021-05-18 01:00 | NUR ---
PT CALLING OUT, IS UNABLE TO TELL THIS NURSE WHAT IS WRONG, TRYING TO KICK OFF COVERS. DRAWING KNEES UP. DENIES NEED TO HAVE BM. RESP RATE INC TO 40 WITH EXERTION. PT UNABLE TO FIND WORDS AND OCC WORD SALAD. PT LOOKS LIKE HE IS HAVING FOOT/LEG CRAMPS. RUBBED FEET AND PT ABLE TO RELAX SOME AND SPEECH BECAME CLEARER.
--- NOTE | 2021-05-18 01:23 | NUR ---
PT SLEPT BRIEFLY AFTER THIS NURSE RUBBED L FOOT UNTIL HE RELAXED. WARM PACK TO FEET FOR COMFORT.
--- NOTE | 2021-05-18 03:30 | NUR ---
HAS BEEN RESTING, KICKED OFF COVERS. IS NOW AWAKE. FOUND TO BE INC OF URINE. LINEN CHANGED. IS LESS STIFF AND RESISTIVE TO MOVMENT AT THIS TIME. REMEMBERS THAT HIS SON BROUGHT HIM TO THE HOSPITAL AND THAT HE IS GOING TO HAVE A PROCEDURE THIS AM BUT DIDN'T KNOW HE WAS IN HIS OWN BED. SCD'S OFF THEY BOTHER PATIENT.
--- NOTE | 2021-05-18 05:00 | NUR ---
PT RESTING/SLEEPING.
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
--- NOTE | 2021-05-18 06:11 | NUR ---
LAB DRAWN. C/O THIRST,GIVEN SWAB. ATTENDS DRY.
--- NOTE | 2021-05-18 07:30 | NUR ---
REPORT RECIEVE. PATIENT IS RESTING IN BED.
--- NOTE | 2021-05-18 08:00 | NUR ---
ASSESSMENT DONE. C/O OF LEFT EAR PAIN. TOLD PATIENT I WOULD TELL DR. JERONIMO ABOUT THE PAIN. OOB TO COMMODE WITH ASSIST, THEN BACK TO BED. IS VERY STIFF AND REQUIRES MUCH ASSISTANCE WITH TRANSFER. IVF PATENT. NO ACTIVE BLEEDING NOTED. REMAINS NPO FOR PENDING SCOPES.
--- NOTE | 2021-05-18 11:30 | NUR ---
TO OR VIA STRETCHER FOR UPPER AND LOWER SCOPE.
--- NOTE | 2021-05-18 12:30 | NUR ---
RETURNED TO CCU, GRADER OPERATOR WITH PATIENT.
--- NOTE | 2021-05-18 12:37 | NUR ---
05/18/21 1237 Kayla Lara 1227- PT TAKEN BACK TO CCU ROOM #130 WITH CNRA. TRANSFERRED PT TO THE HOSPITAL BED WITH STAFF ASSIST X3. PT TOLERATED WELL. RESP EVEN AND UNLABORED. OXYGEN SAT HIGH 90'S ON RA. 1234- PT REPORTS HIS ABD TO BE CRAMPING. PT ENCOURAGED TO PASS FLATUS. PT STATES HE IS ABLE TO PASS SOME FLATUS.
--- NOTE | 2021-05-18 13:30 | NUR ---
REPORT RECIEVED FROM INSURANCE APPLICATION INVESTIGATOR. PATIENT IS AWAKE, DENIES PAIN. RESTFUL SON IS IN ROOM.
--- NOTE | 2021-05-18 14:00 | NUR ---
UP TO COMMODE WITH ASSIST TO VOID THEN TRANSFERRED TO CHAIR. TAKING ENSURE. NO BLEEDING FOUND WITH UPPER AND LOWER SCOPES.
--- NOTE | 2021-05-18 14:54 | OR ---
[facility] [address], [place] [address] Signed DATE OF OPERATION: 05/18/2021 SURGEON: Mary Beth Koroma MD PREOPERATIVE DIAGNOSES: 1. Rectal bleeding. 2. Daily Eliquis. 3. Anemia with hemoglobin 11.2 and mean cell volume 92. POSTOPERATIVE DIAGNOSES: 1. Small hiatal hernia. 2. Moderate diverticulosis. 3. Internal hemorrhoids. PROCEDURES: 1. EGD without biopsy. 2. Colonoscopy without biopsy. ESTIMATED BLOOD LOSS: None. FINDINGS: No evidence of any old or new blood on upper or lower endoscopy. INDICATIONS: Cesar is an 89-year-old demented gentleman who happens to live with his son. He had been given a bath at the bedside the evening before and in the morning, there was quite a bit of blood in his adult depends and in the bed and so forth. He was brought to the emergency room for evaluation. He was given Kcentra to help to reverse the Eliquis. He has been in the hospital yesterday and been hemodynamically stable. I met with Cesar and I later called his son, Oc, on the phone. We put him through his bowel prep and he did quite well. With his IV hydration, though his hemoglobin was 14, down to 11.2. The mean cell volume is 92, BUN is good at 23. We brought him down to our endoscopy suite for upper and lower endoscopy. I reviewed upper and lower endoscopy with Cesar and his son. They understand the nature of the two tests along with the risks including, but not limited to gas bloating, crampy abdominal pain, bleeding, perforation requiring surgery, and missed diagnosis. Apparently, Cesar has never had upper or lower endoscopy. Because of his advanced age and his medical issues, we asked an anesthesia provider to help with increased monitoring and sedation with propofol. Electronically Signed By: MARY BETH KOROMA MD 05/18/21 1454 PATIENT NAME: CESAR SORENSEN OPERATIVE REPORT DATE OF : 32 REPORT #: [id number] PHYSICIAN: MARY BETH KOROMA MD PCP: OTHER PCP REPORT IS CONFIDENTIAL AND NOT TO BE RELEASED WITHOUT AUTHORIZATION [facility] [address], [place] [address] Signed PROCEDURE NOTE: Cesar was taken into endoscopy suite and placed in the supine semi-recumbent position. A bite block was utilized for the case. He was given propofol per our nurse orthotics assistant. The adult gastroscope was introduced and advanced out into the third portion of the duodenum under direct visualization of camera without difficulty. The duodenum and pyloric channel were unremarkable. Stomach was unremarkable. No blood in the stomach whatsoever. No ulcerations. No gastritis. Upon retroflexion of scope, I can see just a small hiatal hernia. The scope was withdrawn up through the area of the GE junction, which was compliant without stricture. There were no gastric or esophageal varices. Very little disruption to the Z-line. No Galindo's mucosa. No distal esophagitis. The middle and upper esophagus were unremarkable. After this, the gas was suctioned out and the gastroscope removed. Cesar tolerated his upper endoscopy quite well. Cesar was then rotated into the left lateral decubitus position. He was maintained on IV sedation with his propofol. We did find that his urine came back positive for bacteria and white blood cells, so he is on Cipro for urinary tract infection. On digital rectal exam, he has very minimal external hemorrhoid tissue. I could not appreciate any fresh blood or breaks in the skin around the anus. His prostate is quite enlarged with the left significantly larger than the right. It is quite indurated. The adult colonoscope was introduced and advanced all around into the cecum under direct visualization of the camera. It did take a little abdominal compression to get into the cecum itself. His prep was good. We could easily see the appendiceal orifice and the ileocecal valve. The scope was slowly withdrawn. There was no old or fresh blood throughout the entire colon. He does have moderate diverticula scattered throughout much of his colon. They were moderate in size and moderate in number, and scattered about. No polyps. No cancers. The rectum was unremarkable except for a few AVMs. They were nonbleeding. Upon retroflexion of scope, he does have minimal to moderate internal hemorrhoid tissue. After this, the gas was suctioned out and colonoscope removed. Cesar tolerated colonoscopy quite well. RECOMMENDATIONS: Cesar will be returned to his ICU bed and started on his regular diet. He will have to decide whether or not Eliquis is worth it for him in the future. Mary Beth Koroma MD ALB/MODL /[id number] Electronically Signed By: MARY BETH KOROMA MD 05/18/21 1454 PATIENT NAME: CESAR SORENSEN OPERATIVE REPORT DATE OF : 34 REPORT #: [id number] PHYSICIAN: MARY BETH KOROMA MD PCP: OTHER PCP REPORT IS CONFIDENTIAL AND NOT TO BE RELEASED WITHOUT AUTHORIZATION [facility] [address] [facility] [place] [address] Signed cc: MD Antonio Roblero MD [place], [place] Copies: MARY BETH KOROMA MD ~ Electronically Signed By: MARY BETH KOROMA MD 05/18/21 1454 PATIENT NAME: CESAR SORENSEN OPERATIVE REPORT DATE OF : 34 REPORT #: [id number] PHYSICIAN: MARY BETH KOROMA MD PCP: OTHER PCP REPORT IS CONFIDENTIAL AND NOT TO BE RELEASED WITHOUT AUTHORIZATION
--- NOTE | 2021-05-18 16:00 | NUR ---
TO COMMODE THEN TO BED WITH ASSIST. DR. JERONIMO PLANS TO TRANSFER PATIENT TO [facility] THIS AFTERNOON. ASSESSMENT UNCHANGED.
--- NOTE | 2021-05-18 18:17 | NUR ---
Report recieved from SISSY Andrews, pt transfered from CCU to the [facility] floor via bed. Pt resting safely in bed with call light in reach and bed alarm on. VSS on RA, pt denies any needs at this time.
--- NOTE | 2021-05-18 19:27 | NUR ---
REPORT RECEIVED FROM DAY SHIFT RN. PT LYING IN BED RESTING WITH EYES CLOSED. RESPIRATIONS EVEN. BED ALARM FOR SAFETY. CALL LIGHT IN REACH.
--- NOTE | 2021-05-18 22:10 | NUR ---
international bank manager rounding note. pt resting in bed with eyes closed. wakes easily. vs obtained and reported to primary rn. attends and bed linens changed by this quality analyst/technical writer and sap consultant. primary rn remains at bedside. further needs denied. call light in reach. white board updated.
--- NOTE | 2021-05-18 22:23 | NUR ---
EVENING ASSESSMENT COMPLETE. SCHEDULED MEDS ADMINISTERED PER EMAR. IV ABX INFUSING WNL. PT ALERT AND ORIENTED X 3. DENIES PAIN OR SOB. ASSISTED PT TO REPOSITION IN BED. WARM BLANKET PROVIDED. PT DENIES QUESTIONS OR CONCERNS. CALL LIGHT IN REACH.
--- NOTE | 2021-05-18 23:38 | NUR ---
telegraphic typewriter operator chief to room for iv pump alarming. pt rsting in bed with eyes closed, wakes easily. reports that he needs to use the commode. pt assisted to bsc with 2pa, requires frequent direction. tolerated well. iv site to lac noted to be leaking. ivf stopped. iv site dc'd. lfa iv flushed, wnl, ivf now infusing to this site. pt denies further needs. call light in reach.
--- NOTE | 2021-05-18 23:45 | NUR ---
THIS CLOSET ORGANIZER AND AGRICULTURAL EQUIPMENT DESIGN ENGINEER [place] HELPED PATIENT USE THE BEDSIDE COMMODE. PATIENT VOIDED. PATIENT IS BACK IN BED. NO OTHER NEEDS AT THIS TIME.
--- NOTE | 2021-05-19 00:21 | NUR ---
PT RESTING IN BED WITH EYES CLOSED. RESPIRATIONS EVEN. IVF INFUSING WNL. CALL LIGHT IN REACH. BED ALARM FOR SAFETY.
--- NOTE | 2021-05-19 01:06 | NUR ---
CALL LIGHT ANSWERED. PT UP TO BSC WITH 2PA AND FWW TO VOID. STAFF ASSIST WITH RADHA CARE. BACK TO BED, ELLI WELL. VS AND I&O COMPLETE. WARM BLANKET PROVIDED. NO FURTHER NEEDS. CALL LIGHT IN REACH.
--- NOTE | 2021-05-19 02:28 | NUR ---
PATIENT USED THE CALL LIGHT. PATIENT NEEDS HELP ADJUSTING PILLOWS ON HEAD. DONE.
--- NOTE | 2021-05-19 04:45 | NUR ---
CALL LIGHT ANSWERED. PT UP TO BSC WITH 1PA AND FWW TO VOID. GAIT WEAK BUT STEADY. PT REQUIRES FREQUENT CUEING. BACK TO BED, ELLI WELL. ASSISTED TO REPOSITION IN BED. PRN FOR PAIN ADMINISTERED FOR GENERALIZED PAIN. WARM BLANKET PROVIDED.
--- NOTE | 2021-05-19 07:27 | NUR ---
BEDSIDE REPORT RECEIVED. PT IS DROWSY BUT INTERACTIVE. DENIES NEEDS OR DISCOMFORTS, CALL LIGHT AND NEEDED ITEMS IN REACH.
--- NOTE | 2021-05-19 09:20 | NUR ---
INTO PATIENT ROOM, PATIENT CURRENTLY UP TO THE BSC. EMILI RN SITTING AT BEDSIDE. WILL RETURN TO ASSESS PATIENT AT LATER TIME.
--- NOTE | 2021-05-19 09:31 | NUR ---
PT UP TO BSC APPEARS STEADY ON HIS FEET REQUIRES VERBAL CUES. SITTING IN THE CHAIR NUCLEAR MED TO GET HIM IN 20 MINIUTES OR SO. IV SITE RED AND PUFFY, FLUIDS STOPPED AT THIS TIME WILL START NEW IV SITE AND INFUSE AT RETURN FROM DIAGNOSTICS. PT AGREES HE IS COMFORTABLE DENIES NEEDS AT THIS TIME. CALL LIGHT IN LAP
--- NOTE | 2021-05-19 10:21 | NUR ---
PT HAS BEEN UP TO THE CHAIR ENTIRE MORNING DOWN TO NUCLEAR MEDICINE AT THIS TIME.
--- NOTE | 2021-05-19 11:17 | NUR ---
PATIENT BACK FROM NUCLEAR MED. VITALS AND I&O'S CHARTED. RN IN ROOM. CALL LIGHT IN REACH. NO FURTHER NEEDS AT THIS TIME.
--- NOTE | 2021-05-19 12:20 | NUR ---
INTO PATIENT ROOM, PATIENT AWAKE LYING IN BED. ASSESSMENT COMPLETED THOUGH SOMEWHAT LIMITED PATIENT SEEMS A BIT FORGETFUL. PATIENT STATES HE CURRENTLY LIVES IN A HOME WITH HIS SON GIAN. HE STATES HE HAS LIVED THERE FOR THE PAST YEAR. 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 PATIENT STATES HE HIS ABLE TO AMBULATE AND HAS A CANE AT HOME FOR ASSISTANCE. WHEN DISCUSSING THE NEED FOR THE PATIENT TO ESTABLISH WITH LOCAL PCP, PATIENT SEEMS CONFUSED WITH PLAN. THE PATIENT STATES HE SEES A PCP IN [place] OR ONCE PER YEAR. WILL DISCUSS THE NEED FOR A LOCAL PCP WITH PATIENT SON GIAN PRIOR TO DISCHARGE. PATIENT GOES ON TO STATE "I AM NOT REALLY SURE WHATS GOING ON WITH ME RIGHT NOW. PATIENT UPDATED OF PENDING RADIOLOGY EVALUATION DONE EARLIER THIS MORNING. PATIENT APPEARS TO UNDERSTAND PROCEDURE AND THE WAIT FOR RESULTS AT THIS TIME. WILL CONTINUE TO F/U WITH PATIENT AND SON GIAN DURING PATIENTS VISIT.
--- NOTE | 2021-05-19 13:27 | NUR ---
PATIENT SITTING UP IN BED. VITALS AND I&O'S CHARTED. LOW BLOOD PRESSURE, RN NOTIFIED. CALL LIGHT IN REACH. NO FURTHER NEEDS AT THIS TIME.
--- NOTE | 2021-05-19 14:16 | NUR ---
PT TAKEN TO IMAGING, WILL FOLLOW
--- NOTE | 2021-05-19 15:24 | NUR ---
PT UP TO BSC TO VOID. UNDERGARMENTS CHANGED AND PT BACK TO BED REFUSING CHAIR STATES HE IS MORE COMFORTABLE LAYING DOWN. SCD'S IN PLACE
--- NOTE | 2021-05-19 18:11 | NUR ---
PT TOLERATES 100% OF EVENING MEAL SON IS PRESENT IN THE ROOM WITH HIM.
--- NOTE | 2021-05-19 18:37 | NUR ---
PT SON PRESENT IN THE ROOM QUESTIONS ANSWERED. PT UP TO TOILET BACK TO BED RESTING EYES CLOSED
--- NOTE | 2021-05-19 19:10 | NUR ---
RECEIVED REPORT FROM SAURABH MOCK RN. PT WITH SON AT BEDSIDE VISITING.
--- NOTE | 2021-05-19 21:29 | NUR ---
Answered pt call light, assited pt with urinal, no output. boosted pt in bed, hob, adjusted pillows. rn in room, no further assitance needed at this time.
--- NOTE | 2021-05-19 21:45 | NUR ---
PT ASSESSMENT COMPLETE. 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 DENIED NEED FOR A PAIN MED, DESPITE HAVING SOME BACK PAIN. STATES ONCE HE DOESN'T MOVE, THE PAIN DECREASES. WILL ASK IF IT GETS WORSE. PIV RFA FLUSHES WELL. MEDICATIONS GIVEN, CIPRO IV INFUSING. PT ROOM TEMP PER CHOICE. NO OTHER NEEDS AT THIS TIME. CALL LIGHT AND PERSONAL ITEMS WITHIN REACH.
--- NOTE | 2021-05-19 22:00 | NUR ---
THIS RN TO ASSUME CARE OF PT. REPORT RECEIVED FROM FLEXOGRAPHIC PRINTING MACHINIST. PT RESTING IN BED WATCHING TV. DENIES NEEDS AT THIS TIME. CALL LIGHT IN REACH.
--- NOTE | 2021-05-19 22:58 | NUR ---
CALL LIGHT ANSWERED. IN TO ASSIST PT TO USE URINAL TO VOID 175 ML CLEAR YELLOW URINE. ASSISTED PT TO REPOSITION IN BED. NO FURTHER NEEDS AT THIS TIME. CALL LIGHT IN HAND.
--- NOTE | 2021-05-19 23:55 | NUR ---
CALL LIGHT ANSWERED. ASSISTED TO USE URINAL IN BED. ADJUSTED PILLOWS PER pt REQUEST. DOOR SHUT REQUESTED. CALL LIGHT IN REACH. TV OFF.
--- NOTE | 2021-05-20 01:23 | NUR ---
CALL LIGHT ANSWERED. ASSISTED PT TO USE URINAL TO VOID 100 ML CLEAR YELLOW URINE. LIGHTS OUT PER REQUEST. NO FURTHER NEEDS.
--- NOTE | 2021-05-20 04:20 | NUR ---
IN TO ROUND ON PT. PT AWAKE IN BED. ASSISTED TO USE URINAL. PRN FOR PAIN ADMINISTERED FOR GENERALIZED PAIN. ASSISTED TO REPOSITION IN BED. CALL LIGHT IN REACH.
--- NOTE | 2021-05-20 05:59 | NUR ---
PT CALL LIGHT ANSWERED, PT USED URINAL, V/S DONE, I/O DONE, CHANGED PT BRIEF, PREICARE DONE, SKIN PROTECTANT APPLIED. T.V ON FOR ENTERTAINMENT, CALL LIGHT WITHIN REACH, NO FURTHER ASSISTANCE NEEDED AT THIS TIME.
--- NOTE | 2021-05-20 07:05 | NUR ---
Report received from Emily SHEEHAN. Pt resting in bed and states no needs at this time, even and unlabored respirations. Call light in reach, will continue plan of care.
--- NOTE | 2021-05-20 07:30 | NUR ---
Call light answered, pt requests to use urinal with RN assistance. No other needs, call light in reach.
--- NOTE | 2021-05-20 08:01 | NUR ---
PT AWAKE IN BED. PLAN TO SIT IN CHAIR AFTER BREAKFAST. WARM CLOTH GIVEN FOR FACE. WHITE BOARD UPDATED. CALL LIGHT WITHIN REACH. NO FURTHER NEEDS AT THIS TIME.
--- NOTE | 2021-05-20 08:05 | NUR ---
Scheduled medications administered, assessment complete. Pt eating breakfast at this time. Sustained low BP over course of hospitalization, MD notified this morning and aware. Pt A+O and has no needs at this time. Call light in reach.
--- NOTE | 2021-05-20 09:05 | NUR ---
Rounded on patient who is resting in chair. Warm blankets provided and thermostat adjusted. Pt has no needs, call light in reach.
[2021-05-20] MEDS ORDERED: PANTOPRAZOLE SO40 MG PO (09:54)
--- NOTE | 2021-05-20 10:12 | NUR ---
Pt states needing to have BM, this RN assists pt with FWW and 1PA to toilet, pt steady gait just requires cueing for directions, etc. Pt instructed customer operations specialist light system and demonstrates understanding.
--- NOTE | 2021-05-20 11:00 | NUR ---
Spoke with Cesar. He is getting ready for dc, awaiting son to pick him up at 3pm. He denies needs for dc. States son called and would like him to shower prior to leaving. Staff are assisting with lunch order. No change in plan for dc.
--- NOTE | 2021-05-20 11:45 | NUR ---
Rounded on patient who is resting in the chair with eyes closed. Feet elevated and warm blanket provided. No other needs at this time.
--- NOTE | 2021-05-20 12:31 | NUR ---
NURSING STAFF IN WITH PT AT THIS TIME. WILL CHECK BACK
--- NOTE | 2021-05-20 13:15 | NUR ---
In room with pt and RESIDENTIAL CAREGIVER Yaima assisting pt to shower. Pt requires 2PA to stand, once standing steady gait, requires cueing for direction.
--- NOTE | 2021-05-20 14:16 | NUR ---
PT AMBULATED TO SHOWER ROOM FOR SHOWER. PT USED THE TOILET THEN THE SHOWER CHAIR. THIS MEDICAL BILLING SUPERVISOR HELPED THE PT WITH A SHOWER AND A SHAVE. PT NOW DRESSED IN OWN CLOTHES AND UP IN CHAIR READY FOR DC. CALL LIGHT WITHIN REACH. NO FURTHER NEEDS AT THIS TIME.
--- NOTE | 2021-05-20 15:08 | NUR ---
PT AWAKE IN CHAIR. LAST SET OF VITALS DONE. SON IN ROOM SISSY COPELAND GIVING EDUCATION. PT READY FOR DC.
== END 2021-05-20 15:15 | disposition home or self-care (01) | DRG 378 ==
LOC: ED 07:42 → CCU 09:38 → MS 05-18 18:05
PROVIDERS: Colon & Rectal Surgery; ADMIT Internal Medicine; ATTEND Internal Medicine
PROC: 30283B1 Transfusion of Nonautologous 4-Factor Prothrombin Complex Concentrate into Vein, Percutaneous Approach (ICD-10-PCS; 2021-05-17)
PROC: 0DJ08ZZ Inspection of Upper Intestinal Tract, Via Natural or Artificial Opening Endoscopic (ICD-10-PCS; principal; 2021-05-18 11:00)
DX: K92.2 Gastrointestinal hemorrhage, unspecified (principal); D62 Acute posthemorrhagic anemia; N39.0 Urinary tract infection, site not specified; K44.9 Diaphragmatic hernia without obstruction or gangrene; I48.0 Paroxysmal atrial fibrillation; F03.90 Unspecified dementia, unspecified severity, without behavioral disturbance, psychotic disturbance, mood disturbance, and anxiety; Z79.01 Long term (current) use of anticoagulants; Z95.0 Presence of cardiac pacemaker; Z88.2 Allergy status to sulfonamides; Z79.899 Other long term (current) drug therapy; Z72.89 Other problems related to lifestyle
CPT/HCPCS: 78278; 80048; 80053; 81001; 83735; 84100; 85007; 85018; 85025; 87088; 96374; 99285-25; A9560; C9113; C9803; J0744; J2704; J7121; J7168; U0003